=== PATIENT | female | born 1965 | race Caucasian/White ===

== ENCOUNTER → 2016-04-29 | Outpatient (CLI) | payer OTHER ==
--- NOTE | 2016-04-29 09:49 | MA ---
Bilateral Digital Screening Mammography Clinical History: 50-year-old female with no family history of breast cancer who presents for routine annual mammographic screening. Technique: Digital CC and MLO views of each breast are compared to previous studies dated May 02, 2015, April 24, 2015, March 30, 2014, March 23, 2013, March 18, 2012, and January 08 1. Cutaneous markers have been placed over moles on the skin surface of the right breast. A pacemaker battery pack projects over the left axilla. This examination was processed by the [employer] computer-aide d detection system. Breast Density: Type B (scattered fibroglandular densities). CAD Evaluation: Negative. Findings: There is a moderately dense heterogeneous residual fibroglandular pattern, which is similar distribution to that seen previously. There is no focal neodensity or architectural change. There ar e no suspicious clustered microcalcifications. Impression: Negative mammography. BI-RADS Category: 1. Recommendation: Routine annual mammographic screening. [facility] will send a result letter to the patient. Negative mammography should not preclude additional work-up of a clinically suspicious finding. The patient's information is entered into a reminder system with a target due date for her next mammo gram.
== END ==
LOC: BMCIMAGING 08:46
DX: Z12.31 Encounter for screening mammogram for malignant neoplasm of breast (principal)
CPT/HCPCS: G0202

== ENCOUNTER → 2016-12-16 | Outpatient (CLI) | payer OTHER | LOC: FIMAGING 14:53 | PROVIDERS: ATTEND Orthopaedic Surgery | DX: M75.01 Adhesive capsulitis of right shoulder (principal); M75.21 Bicipital tendinitis, right shoulder ==

== ENCOUNTER → 2017-05-01 | Outpatient (CLI) | payer OTHER | LOC: BMCIMAGING 13:25 | PROVIDERS: ATTEND Internal Medicine | DX: Z12.31 Encounter for screening mammogram for malignant neoplasm of breast (principal) ==

== ENCOUNTER → 2018-05-07 | Outpatient (CLI) | payer OTHER | LOC: BMCIMAGING 08:30 | PROVIDERS: ATTEND Internal Medicine | DX: Z12.31 Encounter for screening mammogram for malignant neoplasm of breast (principal) ==

== ENCOUNTER → 2018-09-16 | Day surgery (SDC) | payer OTHER ==
[~2018-09-16] MED LIST: IOPAMIDOL (ISOVUE-300) 100 ML BTL ONE
--- NOTE | 2018-09-16 13:03 | EPPROC ---
Electrophysiology Procedure Note: Subclavian venogram Indication - 7-8 seconds of throbbing on R side of neck, prior pacemaker Procedure - 2 separate subclavian venograms were done, contrast followed to SVC. No occlusion of innominate or SVC to explain patient's symptoms. L subclavian stenosis, 80% just proximal level of clavicle-1st rib. Good collaterals seen at this site. Findings d.w. patient and also again with patient + over 30 minutes. All questions answered. Patient to report symptoms of L arm swelling, facial swelling/redness. Patient Problems: Problems Problem Status Onset Complete heart block Acute Syncope Acute
== END | disposition home or self-care (01) ==
LOC: FCATH 11:04
PROVIDERS: ATTEND Internal Medicine Cardiovascular Disease
DX: R09.89 Other specified symptoms and signs involving the circulatory and respiratory systems (principal)
CPT/HCPCS: Q9967